=== PATIENT | female | born 1975 | race Caucasian/White ===

== ENCOUNTER 2020-07-15 14:49 | Emergency (ER) | payer BC ==
[~2020-07-15] VITALS: Ht 162 cm; Wt 74.8 kg
[2020-07-15] MEDS ORDERED: ASPIRIN 81 MG CHEW (CHILDREN'S ASA) PO STA (15:23)
--- NOTE | 2020-07-15 15:29 | ED Cardiac General ---
History of Present Illness General Chief Complaint: Cardiac/General Problems Stated Complaint: SOB, HIGH HR Nursing Triage Note: PT PRESENTS TO ED FROM HOME WITH COMPLAINTS OF PALPITATIONS, TACHYCARDIA, AND SOA X 4 DAYS. REPORTS SHE TESTED POSITIVE FOR COVID ON 06/11. Source: patient Exam Limitations: no limitations (RICCI MALIK) History of Present Illness Date Seen by Provider: Jul 15, 2020 Time Seen by Provider: 15:05 Initial Comments Pt here to ER by private vehicle for high heart rate and shortness of breath the last few days. She states that her HR has been going up to the 130s even just walking around the house. Her mom is a nurse and said her lungs may have been coarse so she called her primary care doctor who had her obtain an CXR yesterday. Her Dr called back today to say the CXR was clear. He had started her on some steroids and azithromycin yesterday in case she had a pneumonia. She also reports having COVID on June 11 having had only some minor symptoms. She ahs a history of hiatal hernia, and she has had some chest pain over the last few days and thought it was possibly related to her hernia. Timing/Duration: 2-3 days (RICCI MALIK) Allergies and Home Medications Allergies Coded Allergies: No Known Drug Allergies (Unverified , 07/15/20) Patient Home Medication List Home Medication List Reviewed: Yes (IDANIA ORDAZ MD) Review of Systems Review of Systems Constitutional: No chills, No dizziness, No fever EENTM: No Nose Congestion; Throat Pain (Chronic) Respiratory: Denies Cough; SOA With Exertion Cardiovascular: Chest Pain; Denies Irregular Heart Rate; Palpitations Gastrointestinal: Denies Abdomen Distended, Denies Abdominal Pain; Constipated; Denies Diarrhea, Denies Nausea Genitourinary: Denies Burning, Denies Frequency, Denies Hematuria Musculoskeletal: No back pain, No muscle weakness Skin: No lesions, No pruritus, No rash Psychiatric/Neurological: Denies Headache, Denies Numbness, Denies Paresthesia (RICCI MALIK) All Other Systems Reviewed Negative Unless Noted: Yes (IDANIA ORDAZ MD) Past Wvgujum-Uvbtpe-Rlhxwz Hx Past Med/Social Hx: Reviewed Nursing Past Med/Soc Hx (IDANIA ORDAZ MD) Patient Social History Recent Infectious Disease Expo: No (RICCI MALIK) Family Medical History Reviewed Nursing Family Hx (IDANIA ORDAZ MD) Physical Exam Vital Signs Vital Signs - First Documented 07/15/20 15:02 Temp 36.0 Pulse 120 Resp 18 B/P (MAP) 134/105 (115) Pulse Ox 99 (IDANIA ORDAZ MD) Vital Signs Capillary Refill : Less Than 3 Seconds (RICCI MALIK) Height, Weight, BMI Height: '" Weight: lbs. oz. kg; 28.00 BMI Method: General Appearance: No Apparent Distress, WD/WN HEENT: TMs Normal, Normal ENT Inspection, Pharynx Normal, Moist Mucous Membranes Neck: Full Range of Motion, Normal Inspection, Non Tender, Supple Respiratory: Chest Non Tender, Lungs Clear, Normal Breath Sounds Cardiovascular: No Edema, Normal Peripheral Pulses, Tachycardia Gastrointestinal: Non Tender, Soft Extremity: Normal Capillary Refill, Normal Inspection, Normal Range of Motion, Non Tender, No Calf Tenderness, No Pedal Edema Neurologic/Psychiatric: Alert, Oriented x3, No Motor/Sensory Deficits, Normal Mood/Affect Skin: Normal Color, Warm/Dry Lymphatic: No Adenopathy (RICCI MALIK) General Appearance: No Apparent Distress, WD/WN Respiratory: Lungs Clear, Normal Breath Sounds Cardiovascular: No Murmur, Tachycardia Neurologic/Psychiatric: Alert, Oriented x3 Skin: Normal Color, Warm/Dry (IDANIA ORDAZ MD) Progress/Results/Core Measures Results/Orders Lab Results Laboratory Tests Test 07/15/20 15:30 Range/Units White Blood Count 7.8 4.3-11.0 10^3/uL Red Blood Count 4.68 3.80-5.11 10^6/uL Hemoglobin 14.6 11.5-16.0 g/dL Hematocrit 43 35-52 % Mean Corpuscular Volume 92 80-99 fL Mean Corpuscular Hemoglobin 31 25-34 pg Mean Corpuscular Hemoglobin Concent 34 32-36 g/dL Red Cell Distribution Width 12.1 10.0-14.5 % Platelet Count 248 130-400 10^3/uL Mean Platelet Volume 11.1 9.0-12.2 fL Immature Granulocyte % (Auto) 0 % Neutrophils (%) (Auto) 85 H 42-75 % Lymphocytes (%) (Auto) 12 12-44 % Monocytes (%) (Auto) 2 0-12 % Eosinophils (%) (Auto) 0 0-10 % Basophils (%) (Auto) 0 0-10 % Neutrophils # (Auto) 6.6 1.8-7.8 10^3/uL Lymphocytes # (Auto) 1.0 1.0-4.0 10^3/uL Monocytes # (Auto) 0.2 0.0-1.0 10^3/uL Eosinophils # (Auto) 0.0 0.0-0.3 10^3/uL Basophils # (Auto) 0.0 0.0-0.1 10^3/uL Immature Granulocyte # (Auto) 0.0 0.0-0.1 10^3/uL D-Dimer 0.28 0.00-0.49 UG/ML Sodium Level 143 135-145 MMOL/L Potassium Level 3.9 3.6-5.0 MMOL/L Chloride Level 106 98-107 MMOL/L Carbon Dioxide Level 28 21-32 MMOL/L Anion Gap 9 5-14 MMOL/L Blood Urea Nitrogen 11 7-18 MG/DL Creatinine 0.87 0.60-1.30 MG/DL Estimat Glomerular Filtration Rate > 60 BUN/Creatinine Ratio 13 Glucose Level 141 H 70-105 MG/DL Calcium Level 9.1 8.5-10.1 MG/DL Corrected Calcium 8.9 8.5-10.1 MG/DL Total Bilirubin 0.3 0.1-1.0 MG/DL Aspartate Amino Transf (AST/SGOT) 14 5-34 U/L Alanine Aminotransferase (ALT/SGPT) 14 0-55 U/L Alkaline Phosphatase 82 40-136 U/L Troponin I < 0.028 <0.028 NG/ML Total Protein 7.2 6.4-8.2 GM/DL Albumin 4.3 3.2-4.5 GM/DL (IDANIA ORDAZ MD) My Orders Orders - IDANIA ORDAZ MD Cbc With Automated Diff (07/15/20 15:21) Comprehensive Metabolic Panel (07/15/20 15:21) Fibrin Degradation Products (07/15/20 15:21) Ed Iv/Invasive Line Start (07/15/20 15:21) Ns Iv 1000 Ml (Sodium Chloride 0.9%) (07/15/20 15:30) Ct Angio Chest W (07/15/20 15:21) Ekg Tracing (07/15/20 15:22) Troponin I (07/15/20 15:22) Aspirin Chewable Tablet (Baby Aspirin Ch (07/15/20 15:23) Iohexol Injection (Omnipaque 350 Mg/Ml 1 (07/15/20 15:30) Received Contrast (Hold Metformin- Contr (07/15/20 15:30) Ns (Ivpb) (Sodium Chloride 0.9% Ivpb Bag (07/15/20 15:30) (IDANIA ORDAZ MD) Medications Given in ED Current Medications Medications Dose Ordered Sig/Rachael Route Start Time Stop Time Status Last Admin Dose Admin Iohexol 75 ml ONCE ONCE IV 07/15/20 15:30 07/15/20 15:31 DC 07/15/20 15:51 69 ML Sodium Chloride 100 ml ONCE ONCE IV 07/15/20 15:30 07/15/20 15:31 DC 07/15/20 15:51 80 ML Sodium Chloride 1,000 ml @ 0 mls/hr Q0M ONCE IV 07/15/20 15:30 07/15/20 15:31 DC 07/15/20 15:36 999 MLS/HR (IDANIA ORDAZ MD) Vital Signs/I&O 07/15/20 15:02 Temp 36.0 Pulse 120 Resp 18 B/P (MAP) 134/105 (115) Pulse Ox 99 (IDANIA ORDAZ MD) Blood Pressure Mean: 115 Progress Progress Note : Progress Note 1530: Pt here for shortness of breath and high heart rate, she has a history of recent COVID, with some chest pain currently and over the last few days. Will order ECG, CBC, CMP, CTA chest, Troponin, 1 L NS bolus, aspirin, (RICCI MALIK) Progress Note : Progress Note I have seen and evaluated the patient and agree with above except as indicated. I have directed the plan of care. Patient is here with tachycardia and palpitations. She is post Covid infection earlier last month that has resolved. She states that she did not have a significant illness. This weekend, she did have chest x-ray due to shortness of breath and cough and was started on Medrol Dosepak as well as azithromycin. Previously on phentermine as well as other heart rate increasing medications but states that she is not currently taking those now and that she is only doing the Medrol Dosepak and azithromycin. Follows with Dr. Jackson. She did discuss her symptoms, including chest pain and tachycardia, and he instructed her to come to the emergency department for further evaluation. Evaluation as above. Plan for labs and CT angiogram of the chest as well as EKG and troponin. Normal saline 1 L bolus and aspirin 324 mg p.o. given. Monitor patient. 1644: CT is negative. Heart rate has declined to the 70s while resting now after fluids and her tachycardia may be sequela of dehydration. She is on steroids which will give her some tachycardia as well. That being said, no pulmonary embolism or pneumonia noted. Lung sounds were clear on exam. Overall I think she is improving. She is safe for discharge home. Discharged home with return precautions. Patient verbalized understandi ng of instructions and agreement with plan. A copy of the chart was sent to Dr. Jackson. (IDANIA ORDAZ MD) Initial ECG Impression Date: Jul 15, 2020 Initial ECG Impression Time: 16:07 Initial ECG Rate: 80 Initial ECG Rhythm: Normal Sinus Initial ECG Impression: Normal Initial ECG Comparisson: No Previous ECG Available Comment Sinus rhythm with normal axis. No evidence of ST elevation AR. No previous available for comparison. Interpreted by me. (IDANIA ORDAZ MD) Diagnostic Imaging Diagonstic Imaging: CT Plain Films/CT/US/NM/MRI: chest Comments [facility], [place] NAME: [facility] REC#: [id number] PT STATUS: REG ER : 1975 PHYSICIAN: IDANIA ORDAZ MD ADMIT DATE: 07/15/20/ER Draft Date of Exam:07/15/20 CT ANGIO CHEST W PROCEDURE: CT angiography of the chest with contrast. TECHNIQUE: Multiple contiguous axial images were obtained through the chest after uneventful bolus administration of intravenous contrast. 3D reconstructed CTA MIP acquisitions were also performed. Auto Exposure Controls were utilized during the CT exam to meet ALARA standards for radiation dose reduction. INDICATION: Chest pain, COVID, tachycardia. FINDINGS: There are no intraluminal pulmonary arterial filling defects. There are no findings of pulmonary arterial embolus. The thoracic aorta is patent and nonaneurysmal. No pleural or pericardial effusion. The lungs are clear. No infiltrate, consolidation, or suspicious groundglass opacity. No effusion or pneumothorax. IMPRESSION: Normal CT angio chest. Dictated on workstation # [id number] Dict: 07/15/20 1604 Trans: 07/15/20 1611 [id number] Interpreted by: BUSTER ORELLANA Electronically signed by: (IDANIA ORDAZ MD) Departure Impression Primary Impression: Bronchitis Additional Impression: Paroxysmal sinus tachycardia Disposition: HOME, SELF-CARE Condition: Improved Departure-Patient Inst. Decision time for Depature: 16:46 (IDANIA ORDAZ MD) Referrals: SIDNEY JACKSON MD (PCP/Family) Primary Care Physician Patient Instructions: Sinus Tachycardia (DC), Bronchitis, Adult ED, Chest Pain (DC) Add. Discharge Instructions: All discharge instructions reviewed with patient and/or family. Voiced u nderstanding. Continue home medications as previously prescribed. You should not restart phentermine until instructed to do so by your doctor. Follow-up with your doctor later this week for recheck and further evaluation. Return for worse pain, weakness, breathing problems, chest pain or other concerns as needed. Drink plenty of fluids and eat a normal diet. Slowly return to normal activities. Rest as needed. Copy Copies To 1: SIDNEY JACKSON MD, [facility] Jul 15, 2020 15:29 IDANIA ORDAZ MD Jul 15, 2020 16:22
[2020-07-15] MEDS ORDERED: NS 100 ML (IVPB) BAG IV ONE (15:30)
[2020-07-15] MEDS ORDERED: NS IV 1000 ML 1,000 ML IV ONE (15:30)
[2020-07-15] MEDS ORDERED: HOLD METFORMIN - RECEIVED CONTRAST 20 ML VIAL IV SCH (15:30)
[2020-07-15] MEDS ORDERED: IOHEXOL 350 MG/ML 100 ML (OMNIPAQUE 350) VIAL IV ONE (15:30)
[2020-07-15 15:43] LABS: BASOPHILS % (AUTO) 0 % (0-10); EOSINOPHILS % (AUTO) 0 % (0-10); HEMATOCRIT 43 % (35-52); HEMOGLOBIN 14.6 g/dL (11.5-16.0); LYMPHOCYTES % (AUTO) 12 % (12-44); MEAN CORPUSCULAR HEMOGLOBIN 31 pg (25-34); MEAN CORPUSCULAR HGB CONC 34 g/dL (32-36); MEAN CORPUSCULAR VOLUME 92 fL (80-99); MEAN PLATELET VOLUME 11.1 fL (9.0-12.2); MONOCYTES # (AUTO) 0.2 10^3/uL (0.0-1.0); MONOCYTES % (AUTO) 2 % (0-12); NEUTROPHILS # (AUTO) 6.6 10^3/uL (1.8-7.8); NEUTROPHILS % (AUTO) 85 % (42-75); PLATELET COUNT 248 10^3/uL (130-400); WHITE BLOOD COUNT 7.8 10^3/uL (4.3-11.0)
[2020-07-15 15:51] LABS: ALBUMIN 4.3 GM/DL (3.2-4.5); CHLORIDE 106 MMOL/L (98-107); POTASSIUM 3.9 MMOL/L (3.6-5.0); SODIUM 143 MMOL/L (135-145)
[2020-07-15 15:52] LABS: CALCIUM 9.1 MG/DL (8.5-10.1)
[2020-07-15 15:53] LABS: GLUCOSE 141 MG/DL (70-105); TOTAL PROTEIN 7.2 GM/DL (6.4-8.2)
[2020-07-15 15:54] LABS: CARBON DIOXIDE 28 MMOL/L (21-32)
[2020-07-15 15:55] LABS: BILIRUBIN,TOTAL 0.3 MG/DL (0.1-1.0)
[2020-07-15 15:56] LABS: ALKALINE PHOSPHATASE 82 U/L (40-136)
[2020-07-15 15:57] LABS: CREATININE SERUM 0.87 MG/DL (0.60-1.30); GFR ESTIMATED > 60
[2020-07-15 15:58] LABS: BUN/CREATININE RATIO 13
[2020-07-15 16:00] LABS: ALANINE AMINOTRANSFERASE 14 U/L (0-55)
--- NOTE | 2020-07-15 16:12 | Diagnostic Imaging Report ---
PROCEDURE: CT angiography of the chest with contrast. TECHNIQUE: Multiple contiguous axial images were obtained through the chest after uneventful bolus administration of intravenous contrast. 3D reconstructed CTA MIP acquisitions were also performed. Auto Exposure Controls were utilized during the CT exam to meet ALARA standards for radiation dose reduction. INDICATION: Chest pain, COVID, tachycardia. FINDINGS: There are no intraluminal pulmonary arterial filling defects. There are no findings of pulmonary arterial embolus. The thoracic aorta is patent and nonaneurysmal. No pleural or pericardial effusion. The lungs are clear. No infiltrate, consolidation, or suspicious groundglass opacity. No effusion or pneumothorax. IMPRESSION: Normal CT angio chest. Dictated by: Dictated on workstation # [id number]
[2020-07-15 16:53] VITALS: BP 138/98
== END 2020-07-15 16:53 | disposition home or self-care (01) ==
LOC: ER 14:53
DX: J40 Bronchitis, not specified as acute or chronic (principal); I47.1 Supraventricular tachycardia
CPT/HCPCS: 36415; 71275; 80053; 84484; 85025; 85379; 93005

== ENCOUNTER 2021-07-16 05:33 | Outpatient (CLI) | payer BC ==
[~2021-07-16] VITALS: Ht 163 cm; Wt 81.8 kg
[2021-07-17] MEDS ORDERED: DESV50TA8 PO (13:49)
[2021-07-17] MEDS ORDERED: BUSP15TA60 PO (13:49)
[2021-07-17] MEDS ORDERED: PANT40TA52 PO (13:49)
== END 2021-07-17 15:08 | disposition home or self-care (01) ==
LOC: PREOP 05:33
PROVIDERS: ATTEND Surgery
DX: Z01.818 Encounter for other preprocedural examination (principal)

== ENCOUNTER 2021-07-23 09:25 | Day surgery (SDC) | payer BC ==
[~2021-07-23] VITALS: Ht 163 cm; Wt 81.8 kg
[~2021-07-23 09:25] MED LIST: BUSP15TA60 PO; DESV50TA8 PO; PANT40TA52 PO
[2021-07-23] MEDS ORDERED: LACTATED RINGERS 1,000 ML IV ONE (09:32)
[2021-07-23] MEDS ORDERED: LACTATED RINGERS 1,000 ML IV STA (09:34)
[2021-07-23 09:45] VITALS: BP 117/74
[2021-07-23] MEDS ORDERED: LIDOCAINE JELLY 2% 6 ML SYRINGE MM PRN (09:45)
--- NOTE | 2021-07-23 10:25 | Progress Note-Pre Operative ---
Pre-Operative Progress Note H&P Reviewed The H&P was reviewed, patient examined and no changes noted. Date Seen by Provider: Jul 23, 2021 Time Seen by Provider: 10:00 Date H&P Reviewed: Jul 23, 2021 Time H&P Reviewed: 10:00 Pre-Operative Diagnosis: GERD, family hx colon ca EPI SEAMAN MD Jul 23, 2021 10:25
--- NOTE | 2021-07-23 10:26 | Discharge Inst-Surgical ---
D/C Lap Instructions-URSZULA Follow Up Activity as tolerated High Fiber Diet 25g or more per day Avoid Alcohol, Caffeine, Spicy [place] and Acid foods. Drink 64 fluid oz or more of fluids per day. Symptoms to Report: Fever over 101 degree F, Nausea/Vomiting If any problems/questions: Contact your physician or go to Emergency Room EPI SEAMAN MD Jul 23, 2021 10:26
[2021-07-23] MEDS ORDERED: ONDANSETRON 4 MG (ZOFRAN) ORAL DISSOLVE TAB PO PRN (10:30)
[2021-07-23] MEDS ORDERED: ONDANSETRON 4 MG/2 ML (SDV) Z0FRAN IVP PRN (10:30)
[2021-07-23] MEDS ORDERED: MIDAZOLAM 2 MG/2 ML (VERSED) VIAL ONE (11:44)
[2021-07-23] MEDS ORDERED: PROPOFOL INJECTION 50 ML IV ONE ×2 (11:44→12:19)
[2021-07-23] MEDS ORDERED: LIDOCAINE PF 2% 5 ML (XYLOCAINE) VIAL ONE (11:54)
[2021-07-23] MEDS ORDERED: GLYCOPYRROLATE 0.2 MG/ML (ROBINUL) 2 ML VIAL ONE (12:54)
[2021-07-23 13:00] VITALS: BP 142/72
[2021-07-23 13:05] VITALS: BP 148/82
[2021-07-23 13:10] VITALS: BP 130/65
--- NOTE | 2021-07-23 13:14 | Progress Note-Post Operative ---
Post-Operative Progess Note Surgeon (s)/Juvenile Justice Specialist (s) Surgeon EPI SEAMAN MD Juvenile Justice Specialist: none Pre-Operative Diagnosis screening colo Post-Operative Diagnosis mild chronic stage 1 ext and int hemorrhoids, mild sigmoid diverticulosis. Procedure & Operative Findings Date of Procedure 07/23/21 Procedure Performed/Findings colonoscopy Anesthesia Type mac Estimated Blood Loss Estimated blood loss (mL): minimal Specimens/Packing Specimens Removed none EPI SEAMAN MD Jul 23, 2021 13:14
[2021-07-23 13:40] VITALS: BP 124/68
[2021-07-23 14:13] VITALS: BP 124/68
--- NOTE | 2021-07-23 15:07 | Anesthesia-General Post-Op ---
MAC Patient Condition Mental Status/LOC: Same as Preop Cardiovascular: Satisfactory Nausea/Vomiting: Absent Respiratory: Satisfactory Pain: Controlled Complications: Absent Post Op Complications Complications None Follow Up Care/Instructions Patient Instructions None needed. Anesthesiology Discharge Order Discharge Order Patient is doing well, no complaints, stable vital signs, no apparent adverse anesthesia problems. No complications reported per nursing. JUANI RODRIGUEZ CRNA Jul 23, 2021 15:07
--- NOTE | 2021-07-23 17:18 | OPERATIVE REPORT ---
DATE OF SERVICE: 07/23/2021 ATTENDING PRIMARY CARE PHYSICIAN: Dr. Daryl Kamara. PREOPERATIVE DIAGNOSIS: Screening colonoscopy. POSTOPERATIVE DIAGNOSIS: Mild sigmoid diverticulosis. PROCEDURE PERFORMED: Colonoscopy. SURGEON: Epi Seaman MD ANESTHESIA: Monitored anesthesia care. ESTIMATED BLOOD LOSS: Minimal. FINDINGS: Mild sigmoid diverticulosis. DISPOSITION: The patient tolerated the procedure well. INDICATIONS FOR PROCEDURE: The patient is a 46-year-old female in need of a screening colonoscopy. She states that she has had some occasional episodes of hemorrhoidal flareups; however, not significant. She does not report any major issues with diarrhea nor constipation as well as no red blood per rectum nor any dark tarry stools. She states that she has a remote family history of colon cancer with her grandfather having the disease. DESCRIPTION OF PROCEDURE: The patient was brought to the operating room and laid supine on the table. After adequate IV pain and sedative medications and monitored anesthesia care, a digital rectal examination was performed. Mild stage I external and internal hemorrhoids identified, not actively edematous nor inflamed and no bleeding. Normal sphincter tone was felt and there were no palpable masses. The endoscope was then intubated into the anus and rectum gently insufflated. The endoscope was then advanced through the valves of [place] of the rectum with no polyps or any neoplasms identified. Through the sigmoid colon, a mild sigmoid diverticulosis was identified. The endoscope was then advanced through the remainder of the descending, transverse, and ascending colon to the cecum, which appeared normal with no polyps or any neoplasms identified. The endoscope was then slowly withdrawn while taking a second look and suctioning of residual air with no additional findings. The patient tolerated the procedure well. We will recommend the incorporation of a high-fiber diet with at least 25 grams of fiber daily as well as significant amounts of water to promote soft stools on a daily basis. If she continues to have issues with nausea or vomiting or continued weight loss, this may be a gallbladder etiology and we would proceed with further evaluation with an ultrasound as well as a possible HIDA scan to look for biliary dyskinesia. Job ID: [id number] DocumentID: [id number] Dictated Date: 07/23/2021 12:57:58 [employer] Date: 07/23/2021 17:17:18 Dictated By: EPI SEAMAN MD
== END 2021-07-23 14:13 | disposition home or self-care (01) ==
LOC: ENDO 09:25
PROVIDERS: ATTEND Surgery
DX: Z12.11 Encounter for screening for malignant neoplasm of colon (principal); K64.0 First degree hemorrhoids; K64.4 Residual hemorrhoidal skin tags; K57.30 Diverticulosis of large intestine without perforation or abscess without bleeding; Z80.0 Family history of malignant neoplasm of digestive organs

== ENCOUNTER → 2022-02-09 | Outpatient (CLI) | payer BC ==
--- NOTE | 2022-02-09 10:58 | Diagnostic Imaging Report ---
MRI RT UPPER EXT JOINT W/O Technique: Multiplanar, multisequence MR imaging of the right shoulder was performed without contrast. Comparison: None available. Indication: Right shoulder pain. Findings: Rotator cuff: The supraspinatus, infraspinatus, teres minor and subscapularis are all intact. There is no rotator cuff muscle atrophy or edema. Glenoid labrum: There is a tear within the substance of the superior labrum oriented in the anterior to posterior direction. No paralabral cyst. Long head of biceps: Long head of biceps is normally positioned within the bicipital groove. The intracapsular segment is intact. Bones and cartilage: Humeral head is normal in morphology without fracture or focal osseous lesion. No glenohumeral chondromalacia. AC joint has a large amount of bone marrow edema on each side of the joint and some erosive changes likely present in the clavicular head. Capsular hypertrophy and/or synovitis is present. Soft tissues: No glenohumeral joint effusion. No MRI findings to suggest adhesive capsulitis. Mild inflammation in the subacromial subdeltoid bursa. IMPRESSION: 1. Nondisplaced superior labral tear (SLAP tear). 2. Bone marrow edema, erosions and synovitis at the AC joint. This could be degenerative in nature or secondary to repetitive overhead motion. Alternatively, rheumatoid arthritis could give this appearance. 3. Mild subacromial/subdeltoid bursitis is likely reactive in nature due to the AC joint inflammation. 4. No rotator cuff tear. Dictated by: Dictated on workstation # [id number]
== END ==
LOC: RAD 07:45
PROVIDERS: ATTEND Family Medicine
DX: S43.431A Superior glenoid labrum lesion of right shoulder, initial encounter (principal); M25.811 Other specified joint disorders, right shoulder; M75.51 Bursitis of right shoulder; X58.XXXA Exposure to other specified factors, initial encounter
CPT/HCPCS: 73221

== ENCOUNTER 2022-09-09 15:48 | Outpatient (RCR) | payer BC | END 2022-09-11 | PROVIDERS: ATTEND Physical Therapist | DX: M54.2 Cervicalgia (principal); R51.9 Headache, unspecified; M26.609 Unspecified temporomandibular joint disorder, unspecified side ==

== ENCOUNTER 2022-10-05 15:45 | Outpatient (RCR) | payer BC | END 2022-10-05 17:03 | disposition home or self-care (01) | PROVIDERS: ATTEND Physical Therapist | DX: M54.2 Cervicalgia (principal); R51.9 Headache, unspecified; M26.609 Unspecified temporomandibular joint disorder, unspecified side; J45.909 Unspecified asthma, uncomplicated ==

== ENCOUNTER → 2023-02-01 | Outpatient (CLI) | payer BC ==
--- NOTE | 2023-02-01 17:56 | Diagnostic Imaging Report ---
EXAM: LUMBOSACRAL SPINE 4 VIEWS OR > INDICATION: Back pain. Lower back spasms. COMPARISON: None. FINDINGS: Mild left apex lumbar curvature. Vertebral body heights are preserved. No fractures. No substantial spondylotic change. Visualized pelvis is intact. No pars defects. IMPRESSION: Mild left apex lumbar scoliosis. Remainder unremarkable. Dictated by: Dictated on workstation # [id number]
== END ==
LOC: RAD 16:09
PROVIDERS: ATTEND Nurse Practitioner Women's Health
DX: M41.86 Other forms of scoliosis, lumbar region (principal); M62.830 Muscle spasm of back
CPT/HCPCS: 72110

== ENCOUNTER → 2023-03-15 | Outpatient (CLI) | payer BC ==
--- NOTE | 2023-03-15 19:43 | Diagnostic Imaging Report ---
PROCEDURE: Pelvic comp/transvaginal sonogram. TECHNIQUE: Complete transabdominal and transvaginal pelvic ultrasound was performed. In addition, limited pelvic Doppler was performed. INDICATION: Dyspareunia. Patient has had a prior complete hysterectomy 17 years ago. The uterus and both ovaries are surgically absent. The vaginal cuff is unremarkable. No pelvic mass or fluid collection is identified. IMPRESSION: Status post hysterectomy and bilateral oophorectomy. No abnormality is detected. Dictated by: Dictated on workstation # [id number]
== END ==
LOC: RAD 14:30
PROVIDERS: ATTEND Nurse Practitioner Women's Health
DX: R10.2 Pelvic and perineal pain (principal); Z90.710 Acquired absence of both cervix and uterus; Z90.722 Acquired absence of ovaries, bilateral
CPT/HCPCS: 76830; 76856